=== PATIENT | male | born 1945 | race Caucasian/White ===

== ENCOUNTER 2018-03-12 09:48 | Emergency (ER) | payer MEDICARE, OTHER ==
[~2018-03-12] VITALS: Ht 571.8 cm; Wt 79.5 kg
[~2018-03-12 09:48] MED LIST: ALD25T PO; ASPI-1071 PO; ATOR40TA14 PO; CLOP75TA35 PO; LOP25T PO; MULT-1085 PO; NITR0.4T48 SL; PANT40TA39 PO; RANI-366 PO
[2018-03-12] MEDS ORDERED: ondansetron/PF 4mg/2ml inj IV ONE ×2 (09:55→11:35)
[2018-03-12] MEDS ORDERED: normal saline 1000ML IV soln IVB ONE ×2 (09:55→11:35)
[2018-03-12] MEDS: morphine 4 MG/ML inj SYRINge IV PRN ×2 (10:04→11:59)
[2018-03-12 10:39] LABS: BASOPHILS % (AUTO) 0.2 % (0-1); EOSINOPHILS # (AUTO) 0.2 X10'3 (0-0.9); HEMATOCRIT 39.7 % (42.0-52.0); HEMOGLOBIN 13.1 g/dl (14.0-17.9); LYMPHOCYTES # (AUTO) 0.9 X10'3 (1.1-4.8); LYMPHOCYTES % (AUTO) 5.5 % (21-51); MEAN CORPUSCULAR HGB CONC 33.1 % (33.0-36.5); MEAN CORPUSCULAR VOLUME 81.3 FL (78-98); MEAN PLATELET VOLUME 6.8 FL (7.4-10.4); MONOCYTES # (AUTO) 0.3 X10'3 (0-0.9); MONOCYTES % (AUTO) 1.6 % (2-12); NEUTROPHILS # (AUTO) 14.6 X10'3 (1.8-7.7); NEUTROPHILS % (AUTO) 91.7 % (42-75); PLATELET COUNT 366 X10'3 (140-440); RED BLOOD COUNT 4.88 X10'6 (4.70-6.10); RED CELL DISTRIBUTION WIDTH 17.8 % (11.5-14.5); WHITE BLOOD COUNT 15.9 X10'3 (4.5-11.0)
[2018-03-12 10:54] LABS: ALANINE AMINOTRANSFERASE 29 U/L (12-78); ALBUMIN 3.9 G/DL (3.4-5.0); ALKALINE PHOSPHATASE 121 IU/L (46-116); ANION GAP 11 (8-16); ASPARTATE AMINO TRANSFERASE 20 U/L (10-37); BILIRUBIN,TOTAL 0.6 MG/DL (0.1-1.0); BLOOD UREA NITROGEN 16 MG/DL (7-18); BUN/CREATININE RATIO 14.5 (5.4-32.0); CALCIUM 9.2 MG/DL (8.5-10.1); CHLORIDE 105 MMOL/L (99-107); GLUCOSE 186 MG/DL (70-104); LIPASE 73 U/L (73-393); POTASSIUM 4.9 MMOL/L (3.5-5.1); SODIUM 141 MMOL/L (135-145); TOTAL CARBON DIOXIDE 25.1 MMOL/L (24-32); TOTAL PROTEIN 7.9 G/DL (6.4-8.2); eGFR 66 ML/MIN
[2018-03-12] MEDS ORDERED: sucralfate 1gm/10ml UD suspension PO STA (11:32)
[2018-03-12 11:34] LABS: CLARITY,URINE CLEAR (Clear); COLOR,URINE YELLOW (Yellow); GLUCOSE, URINE 250 mg/dl (Neg); KETONES,URINE >=80 mg/dl (Neg); LEUKOCYTE ESTERASE ,URINE NEGATIVE (Neg); NITRITES, URINE NEGATIVE (Neg); OCCULT BLOOD,URINE NEGATIVE (Neg); PROTEIN,URINE NEGATIVE (Neg); UROBILINOGEN,URINE 0.2 E.U/dL (0.2-1.0)
[2018-03-12 11:35] LABS: UA COLLECTION TYPE CLN CATCH MIDSTREAM
[2018-03-12] MEDS ORDERED: proCHLORperazine 10 MG/2 ml inj IV ONE (11:35)
[2018-03-12] MEDS ORDERED: mag hydrox/Alum hydrox/simeth 30ml oral suspension PO ONE (11:35)
[2018-03-12] MEDS ORDERED: LIDOcaine Viscous 15ml cup PO ONE (11:35)
[2018-03-12] MEDS ORDERED: morphine 4 MG/ML inj SYRINge IV PRN (11:35)
[2018-03-12] MEDS ORDERED: ONDA8TAB9 PO (12:43)
[2018-03-12] MEDS ORDERED: SUCR1ORA2 PO (12:43)
[2018-03-12 12:57] VITALS: BP 161/87
== END 2018-03-12 12:59 | disposition home or self-care (01) ==
LOC: ER 09:48
DX: R10.11 Right upper quadrant pain (principal); R10.13 Epigastric pain; R11.2 Nausea with vomiting, unspecified; R19.7 Diarrhea, unspecified; I25.10 Atherosclerotic heart disease of native coronary artery without angina pectoris; E78.00 Pure hypercholesterolemia, unspecified; I10 Essential (primary) hypertension; K21.9 Gastro-esophageal reflux disease without esophagitis; J45.909 Unspecified asthma, uncomplicated; E11.9 Type 2 diabetes mellitus without complications; G89.29 Other chronic pain; F12.90 Cannabis use, unspecified, uncomplicated; Z95.1 Presence of aortocoronary bypass graft; Z87.442 Personal history of urinary calculi; Z98.61 Coronary angioplasty status; Z98.890 Other specified postprocedural states; Z88.0 Allergy status to penicillin; Z88.8 Allergy status to other drugs, medicaments and biological substances; Z79.82 Long term (current) use of aspirin; Z79.899 Other long term (current) drug therapy
CPT/HCPCS: 36415; 74176; 80053; 81003; 83690; 85025; 93005; 96361; 96374; 96375; 96376; 99285; J0780; J2270; J2405; J7030

== ENCOUNTER 2020-07-13 10:10 | Emergency (ER) | payer OTHER, MEDICARE ==
[~2020-07-13] VITALS: Ht 165.1 cm; Wt 81.8 kg
[~2020-07-13 10:10] MED LIST changes: +ONDA8TAB9 PO; +SUCR1ORA2 PO
[2020-07-13] MEDS ORDERED: cyclobenzaprine 10mg tablet PO ONE ×3 (11:25→11:45)
[2020-07-13] MEDS ORDERED: ketorolac trometh. 30mg/ml inj. IM ONE (11:25)
[2020-07-13] MEDS ORDERED: triamcinolone acetonide 40mg/ml inj IM ONE (11:25)
--- NOTE | 2020-07-13 13:30 | NUR ---
Pt is awaiting MRI to be completed.
[2020-07-13 15:03] VITALS: BP 172/68
[2020-07-13] MEDS ORDERED: CYCL-1 PO (15:13)
[2020-07-13] MEDS ORDERED: HYDR-4353 PO (15:13)
== END 2020-07-13 15:20 | disposition home or self-care (01) ==
LOC: ER 10:12
DX: M54.42 Lumbago with sciatica, left side (principal); G89.29 Other chronic pain; I25.10 Atherosclerotic heart disease of native coronary artery without angina pectoris; E78.00 Pure hypercholesterolemia, unspecified; I10 Essential (primary) hypertension; J45.909 Unspecified asthma, uncomplicated; K21.9 Gastro-esophageal reflux disease without esophagitis; E11.9 Type 2 diabetes mellitus without complications; F12.90 Cannabis use, unspecified, uncomplicated; Z98.61 Coronary angioplasty status; Z95.1 Presence of aortocoronary bypass graft; Z98.890 Other specified postprocedural states; Z88.0 Allergy status to penicillin; Z79.82 Long term (current) use of aspirin; Z79.899 Other long term (current) drug therapy
CPT/HCPCS: 72148; 96372; 99284; J1885; J3301

== ENCOUNTER 2020-11-16 11:22 | Day surgery (SDC) | payer MEDICARE ==
[2020-11-16] VITALS (11 sets, daily range): BP systolic 125–156; BP diastolic 51–78
[~2020-11-16] VITALS: Ht 165.1 cm; Wt 88.7 kg
[~2020-11-16 11:22] MED LIST changes: +CLOP75TA34 PO; -CLOP75TA35 PO; +CYCL-1 PO
[2020-11-16] MEDS ORDERED: glucagon, human recombinant 1mg kit SUBCUT PRN (12:15)
[2020-11-16] MEDS ORDERED: diphenhydrAMINE 25mg capsule PO PRN (12:15)
[2020-11-16] MEDS ORDERED: insulin Lispro (HumaLOG) vial - multi-dose SQ SCH (12:15)
[2020-11-16] MEDS ORDERED: normal saline 1,000 ML IV SCH (12:15)
[2020-11-16] MEDS ORDERED: dextrose 50%-water 50ml dispensing syringe IV PRN ×2 (12:15)
[2020-11-16] MEDS ORDERED: LORazepam 0.5 MG tablet PO PRN (12:15)
[2020-11-16] MEDS ORDERED: nitroGLYCERIN 0.4mg SUBLingual tab SL PRN (12:15)
[2020-11-16] MEDS ORDERED: dextrose ORAL solution 15 GM/59 ML bottle PO PRN ×2 (12:15)
[2020-11-16] MEDS ORDERED: ATOR80TA PO (12:26)
[2020-11-16] MEDS ORDERED: UBID200C18 PO (12:26)
[2020-11-16] MEDS ORDERED: METF-900 PO (12:26)
[2020-11-16] MEDS ORDERED: ESOM20CA PO (12:26)
[2020-11-16] MEDS ORDERED: EZET10TA6 PO (12:26)
[2020-11-16] MEDS ORDERED: VITAMIN B12 PO (12:26)
[2020-11-16] MEDS ORDERED: VITAMIN E PO (12:26)
[2020-11-16] MEDS ORDERED: CHOL100046 PO (12:26)
[2020-11-16] MEDS ORDERED: AMLO2.5T4 PO (12:26)
[2020-11-16 12:32] LABS: BASOPHILS # (AUTO) 0.1 X10'3 (0-0.2); BASOPHILS % (AUTO) 1.3 % (0-1); EOSINOPHILS # (AUTO) 0.6 X10'3 (0-0.9); HEMATOCRIT 33.4 % (42.0-52.0); HEMOGLOBIN 10.5 g/dl (14.0-17.9); LYMPHOCYTES # (AUTO) 2.4 X10'3 (1.1-4.8); LYMPHOCYTES % (AUTO) 32.9 % (21-51); MEAN CORPUSCULAR HEMOGLOBIN 24.3 PG (27.0-31.0); MEAN CORPUSCULAR HGB CONC 31.5 g/dL (33.0-36.5); MEAN CORPUSCULAR VOLUME 77.2 FL (78-98); MEAN PLATELET VOLUME 6.6 FL (7.4-10.4); MONOCYTES # (AUTO) 0.8 X10'3 (0-0.9); MONOCYTES % (AUTO) 10.5 % (2-12); NEUTROPHILS # (AUTO) 3.5 X10'3 (1.8-7.7); NEUTROPHILS % (AUTO) 47.3 % (42-75); PLATELET COUNT 381 X10'3 (140-440); RED BLOOD COUNT 4.32 X10'6 (4.70-6.10); RED CELL DISTRIBUTION WIDTH 16.6 % (11.5-14.5); WHITE BLOOD COUNT 7.3 X10'3 (4.5-11.0)
[2020-11-16 12:45] LABS: PARTIAL THROMBOPLASTIN TIME 25 SECONDS (22-32)
[2020-11-16 12:55] LABS: ALBUMIN 3.7 G/DL (3.4-5.0); ANION GAP 9 (8-16); BLOOD UREA NITROGEN 15 MG/DL (7-18); BUN/CREATININE RATIO 15.5 (5.4-32.0); CALCIUM 8.6 MG/DL (8.5-10.1); CHLORIDE 107 MMOL/L (99-107); CREATININE 0.97 MG/DL (0.60-1.10); GLUCOSE 116 MG/DL (70-104); POTASSIUM 4.1 MMOL/L (3.5-5.1); SODIUM 142 MMOL/L (135-145); TOTAL CARBON DIOXIDE 26.2 MMOL/L (24-32); TROPONIN I < 0.04 NG/ML (0.0-0.05); eGFR 76 ML/MIN
[2020-11-16] MEDS ORDERED: predniSONE 20 mg tablet PO STA (13:05)
[2020-11-16] MEDS ORDERED: methylPREDNISolone sod succ 125mg/2ml vial IV STA (13:05)
[2020-11-16] MEDS ORDERED: fentaNYL/PF 50MCG/1 ML 2ML syringe ONE (13:37)
[2020-11-16] MEDS ORDERED: iohexol 350MG/ML 100ml bottle IV ONE (13:37)
[2020-11-16] MEDS ORDERED: LIDOcaine 1% (10mg/ml)w/preservative injection 20ml MDV ONE (13:37)
[2020-11-16] MEDS ORDERED: midazolam 2 mg/2 ml injection ONE (13:37)
[2020-11-16] MEDS ORDERED: iohexol 350 MG/ML 50ML vial IV ONE ×2 (13:37→14:24)
[2020-11-16] MEDS ORDERED: HYDROcodone/acetaminophen 5mg/325mg tablet PO PRN (15:20)
[2020-11-16] MEDS ORDERED: OXAZEpam 15mg capsule PO PRN (15:20)
[2020-11-16] MEDS ORDERED: proCHLORperazine 10 MG/2 ml inj IV PRN (15:20)
[2020-11-16] MEDS ORDERED: ondansetron/PF 4mg/2ml inj IV PRN (15:20)
[2020-11-16] MEDS ORDERED: HYDROcodone/acetaminophen 10/325mg tab PO PRN (15:20)
[2020-11-16] MEDS ORDERED: insulin glargine (Lantus) pen - multi-dose SQ SCH (21:00)
== END 2020-11-16 20:55 | disposition home or self-care (01) ==
LOC: SSTAY O 11:22
PROVIDERS: ATTEND Internal Medicine Cardiovascular Disease
DX: I25.119 Atherosclerotic heart disease of native coronary artery with unspecified angina pectoris (principal); R94.30 Abnormal result of cardiovascular function study, unspecified; I10 Essential (primary) hypertension; Z95.1 Presence of aortocoronary bypass graft
CPT/HCPCS: 36415; 71046; 76937; 80048; 82948; 83880; 84484; 85025; 85610; 85730; 93458; C1760; C1769; C1894; G0278; J1644; J1815; J2001; J2250; J2930; J3010; J7030; J7512; Q0163; Q9967; 99152; 99153; A4620; A6258

== ENCOUNTER 2020-12-21 07:29 | Day surgery (SDC) | payer MEDICARE ==
[2020-12-20 10:42] LABS: BASOPHILS # (AUTO) 0.1 X10'3 (0-0.2); BASOPHILS % (AUTO) 1.2 % (0-1); EOSINOPHILS # (AUTO) 0.3 X10'3 (0-0.9); EOSINOPHILS % (AUTO) 3.2 % (0-6); HEMATOCRIT 32.5 % (42.0-52.0); HEMOGLOBIN 10.1 g/dl (14.0-17.9); LYMPHOCYTES # (AUTO) 1.8 X10'3 (1.1-4.8); LYMPHOCYTES % (AUTO) 20.8 % (21-51); MEAN CORPUSCULAR HEMOGLOBIN 23.2 PG (27.0-31.0); MEAN CORPUSCULAR HGB CONC 31.1 g/dL (33.0-36.5); MEAN CORPUSCULAR VOLUME 74.8 FL (78-98); MEAN PLATELET VOLUME 6.6 FL (7.4-10.4); MONOCYTES % (AUTO) 11.7 % (2-12); NEUTROPHILS # (AUTO) 5.4 X10'3 (1.8-7.7); NEUTROPHILS % (AUTO) 63.1 % (42-75); PLATELET COUNT 431 X10'3 (140-440); RED BLOOD COUNT 4.34 X10'6 (4.70-6.10); RED CELL DISTRIBUTION WIDTH 17.1 % (11.5-14.5); WHITE BLOOD COUNT 8.6 X10'3 (4.5-11.0)
[2020-12-20 10:50] LABS: PARTIAL THROMBOPLASTIN TIME 25 SECONDS (22-32)
[2020-12-20 11:08] LABS: ALANINE AMINOTRANSFERASE 26 U/L (12-78); ALBUMIN 3.6 G/DL (3.4-5.0); ALBUMIN/GLOBULIN RATIO 0.9 (1.1-1.5); ALKALINE PHOSPHATASE 130 IU/L (46-116); ANION GAP 11 (8-16); ASPARTATE AMINO TRANSFERASE 33 U/L (10-37); BILIRUBIN,TOTAL 0.6 MG/DL (0.1-1.0); BLOOD UREA NITROGEN 13 MG/DL (7-18); BUN/CREATININE RATIO 12.6 (5.4-32.0); CALCIUM 9.2 MG/DL (8.5-10.1); CHLORIDE 103 MMOL/L (99-107); CREATININE 1.03 MG/DL (0.60-1.10); GLUCOSE 139 MG/DL (70-104); POTASSIUM 4.3 MMOL/L (3.5-5.1); SODIUM 139 MMOL/L (135-145); TOTAL CARBON DIOXIDE 25.3 MMOL/L (24-32); TOTAL PROTEIN 7.8 G/DL (6.4-8.2); eGFR 71 ML/MIN
[~2020-12-21] VITALS: Ht 165.1 cm; Wt 87.4 kg
[2020-12-21] VITALS (12 sets, daily range): BP systolic 103–146; BP diastolic 44–76
[~2020-12-21 07:29] MED LIST changes: -ALD25T PO; +AMLO2.5T4 PO; -ATOR40TA14 PO; +ATOR80TA PO; +CHOL100046 PO; -CYCL-1 PO; +ESOM20CA PO; +EZET10TA6 PO; +METF-900 PO; -MULT-1085 PO; -ONDA8TAB9 PO; -PANT40TA39 PO; -RANI-366 PO; -SUCR1ORA2 PO; +UBID200C18 PO; +VITAMIN B12 PO; +VITAMIN E PO
[2020-12-21] MEDS ORDERED: glucagon, human recombinant 1mg kit SUBCUT PRN (08:00)
[2020-12-21] MEDS ORDERED: diphenhydrAMINE 25mg capsule PO PRN (08:00)
[2020-12-21] MEDS ORDERED: insulin Lispro (HumaLOG) vial - multi-dose SQ SCH (08:00)
[2020-12-21] MEDS ORDERED: normal saline 1,000 ML IV SCH (08:00)
[2020-12-21] MEDS ORDERED: dextrose 50%-water 50ml dispensing syringe IV PRN ×2 (08:00)
[2020-12-21] MEDS ORDERED: nitroGLYCERIN 0.4mg SUBLingual tab SL PRN (08:00)
[2020-12-21] MEDS ORDERED: dextrose ORAL solution 15 GM/59 ML bottle PO PRN ×2 (08:00)
[2020-12-21] MEDS ORDERED: LORazepam 0.5 MG tablet PO PRN (08:00)
[2020-12-21] MEDS ORDERED: TRAM50TA2 PO (08:24)
[2020-12-21] MEDS ORDERED: NITR1PAT63 TOP (08:24)
[2020-12-21] MEDS ORDERED: METO25TA6 PO (08:24)
[2020-12-21] MEDS ORDERED: FLO0.4C PO (08:24)
[2020-12-21] MEDS ORDERED: AMLO2.5T5 PO (08:24)
[2020-12-21] MEDS ORDERED: ASPI-10 PO (08:24)
[2020-12-21] MEDS ORDERED: NITR0.4T51 SL (08:24)
[2020-12-21] MEDS ORDERED: GABA-530 PO (08:24)
[2020-12-21] MEDS ORDERED: GARL1000 PO (08:24)
[2020-12-21 09:09] LABS: TROPONIN I 1.88 NG/ML (0.0-0.05)
--- NOTE | 2020-12-21 09:24 | NUR ---
Called blood bank laboratory technician to report elevated troponin to Dr. Winter, he was in the blood bank laboratory technician "scrubbed in" so Suha CAMILO took the message and stated she would report lab result to MD. Pt sitting up in bed, denies cp, denies sob. Will continue to monitor.
[2020-12-21] MEDS ORDERED: iohexol 350 MG/ML 50ML vial IV ONE (09:54)
[2020-12-21] MEDS ORDERED: midazolam 1 mg/ML 2ml injection ONE (09:54)
[2020-12-21] MEDS ORDERED: iohexol 350MG/ML 100ml bottle IV ONE (09:54)
[2020-12-21] MEDS ORDERED: LIDOcaine 1% (10mg/ml)w/preservative injection 20ml MDV ONE (09:54)
[2020-12-21] MEDS ORDERED: fentaNYL/PF 50MCG/1 ML 2ML syringe ONE (09:54)
[2020-12-21] MEDS ORDERED: proCHLORperazine 10 MG/2 ml inj ONE (10:37)
[2020-12-21] MEDS ORDERED: heparin 1,000unit/ml 10ml vial 10 ML ONE (11:09)
[2020-12-21] MEDS ORDERED: tirofiban 5mg in NS 100mL 100 ML IV ONE (11:12)
[2020-12-21] MEDS ORDERED: heparin 25,000 UNIT/250ml bag 250 ML IV ONE (11:12)
[2020-12-21] MEDS ORDERED: HYDROmorphone 1 mg/ml syringe ONE (11:12)
[2020-12-21] MEDS ORDERED: iohexol 350 MG/1 ML 200ml bottle ONE (11:13)
[2020-12-21] MEDS ORDERED: nitroGLYCERIN-Tridil 50MG/D5W 250 ML IV ONE (11:28)
[2020-12-21] MEDS ORDERED: clopidogrel 300mg tablet ONE (11:38)
[2020-12-21] MEDS ORDERED: HYDROcodone/acetaminophen 10/325mg tab PO PRN (12:15)
[2020-12-21] MEDS ORDERED: proCHLORperazine 10 MG/2 ml inj IV PRN (12:15)
[2020-12-21] MEDS ORDERED: ondansetron/PF 4mg/2ml inj IV PRN (12:15)
[2020-12-21] MEDS ORDERED: HYDROcodone/acetaminophen 5mg/325mg tablet PO PRN (12:15)
[2020-12-21] MEDS ORDERED: OXAZEpam 15mg capsule PO PRN (12:15)
--- NOTE | 2020-12-21 12:30 | NUR ---
Pt ate 100% of breakfast tray, 250ml oral fluid intake
--- NOTE | 2020-12-21 15:39 | NUR ---
Pt resting comfortably, eyes closed, respirations even. Site stable, vs stable as charted. Will continue to monitor.
--- NOTE | 2020-12-21 16:18 | NUR ---
Problems reprioritized. Patient report given, questions answered & plan of care reviewed with LESLEE Baires.
[2020-12-21] MEDS ORDERED: insulin glargine (Lantus) pen - multi-dose SQ SCH (21:00)
== END 2020-12-21 19:15 | disposition home or self-care (01) ==
LOC: SSTAY O 07:29
PROVIDERS: ATTEND Internal Medicine Cardiovascular Disease
DX: I25.118 Atherosclerotic heart disease of native coronary artery with other forms of angina pectoris (principal); E11.9 Type 2 diabetes mellitus without complications; N40.1 Benign prostatic hyperplasia with lower urinary tract symptoms; E78.5 Hyperlipidemia, unspecified; I25.2 Old myocardial infarction; I10 Essential (primary) hypertension; J44.9 Chronic obstructive pulmonary disease, unspecified; G89.4 Chronic pain syndrome; Z79.01 Long term (current) use of anticoagulants; Z98.890 Other specified postprocedural states; Z88.0 Allergy status to penicillin; Z88.8 Allergy status to other drugs, medicaments and biological substances; Z87.891 Personal history of nicotine dependence; Z95.5 Presence of coronary angioplasty implant and graft; R06.02 Shortness of breath
CPT/HCPCS: 36415; 71046; 76937; 80053; 82948; 83880; 84484; 85025; 85347; 85610; 85730; 99152; 99153; C1725; C1751; C1760; C1769; C1874; C1894; C9600; J0780; J1170; J1644; J1815; J2001; J2250; J3010; J3246; J7030; Q0163; Q9967; 75710; 93452; A6258; J3490

== ENCOUNTER 2022-12-14 09:25 | Inpatient (IN) | payer OTHER, MEDICARE ==
[~2022-12-14] VITALS: Ht 165.1 cm; Wt 81.8 kg
[~2022-12-14 09:25] MED LIST changes: -AMLO2.5T4 PO; +AMLO2.5T5 PO; +ASPI-10 PO; -ASPI-1071 PO; +FLO0.4C PO; +GABA-530 PO; +GARL1000 PO; -NITR0.4T48 SL; +NITR0.4T51 SL; +NITR1PAT63 TOP; +TRAM50TA2 PO
[2022-12-14] MEDS ORDERED: nitroGLYCERIN 0.4mg SUBLingual tab SL PRN ×2 (10:30→15:00)
[2022-12-14 10:50] LABS: BASOPHILS # (AUTO) 0.1 X10'3 (0-0.2); BASOPHILS % (AUTO) 0.9 % (0-1); EOSINOPHILS # (AUTO) 0.2 X10'3 (0-0.9); EOSINOPHILS % (AUTO) 3.6 % (0-6); HEMATOCRIT 44.5 % (42.0-52.0); HEMOGLOBIN 15.2 g/dl (14.0-17.9); LYMPHOCYTES # (AUTO) 1.9 X10'3 (1.1-4.8); LYMPHOCYTES % (AUTO) 28.8 % (21-51); MEAN CORPUSCULAR HEMOGLOBIN 31.2 PG (27.0-31.0); MEAN CORPUSCULAR HGB CONC 34.1 g/dL (33.0-36.5); MEAN CORPUSCULAR VOLUME 91.4 FL (78-98); MEAN PLATELET VOLUME 6.3 FL (7.4-10.4); MONOCYTES # (AUTO) 0.6 X10'3 (0-0.9); MONOCYTES % (AUTO) 8.5 % (2-12); NEUTROPHILS # (AUTO) 3.9 X10'3 (1.8-7.7); NEUTROPHILS % (AUTO) 58.2 % (42-75); PLATELET COUNT 289 X10'3 (140-440); RED BLOOD COUNT 4.87 X10'6 (4.70-6.10); RED CELL DISTRIBUTION WIDTH 14.8 % (11.5-14.5); WHITE BLOOD COUNT 6.7 X10'3 (4.5-11.0)
[2022-12-14 11:10] LABS: ALANINE AMINOTRANSFERASE 52 U/L (12-78); ALBUMIN 3.9 G/DL (3.4-5.0); ALBUMIN/GLOBULIN RATIO 1.1 (1.1-1.5); ALKALINE PHOSPHATASE 98 IU/L (46-116); ANION GAP 11 (8-16); ASPARTATE AMINO TRANSFERASE 31 U/L (10-37); BILIRUBIN,TOTAL 0.5 MG/DL (0.1-1.0); BLOOD UREA NITROGEN 17 MG/DL (7-18); BUN/CREATININE RATIO 18.1 (5.4-32.0); CALCIUM 9.5 MG/DL (8.5-10.1); CHLORIDE 104 MMOL/L (99-107); CREATININE 0.94 MG/DL (0.60-1.10); GLUCOSE 181 MG/DL (70-104); POTASSIUM 4.3 MMOL/L (3.5-5.1); SODIUM 141 MMOL/L (135-145); TOTAL CARBON DIOXIDE 26.3 MMOL/L (24-32); TOTAL PROTEIN 7.4 G/DL (6.4-8.2); eGFR 78 ML/MIN
[2022-12-14] MEDS ORDERED: nitroGLYCERIN 0.4mg/hour patch TD ONE (14:35)
[2022-12-14] MEDS ORDERED: aspirin 81mg tab.chew PO ONE (14:35)
[2022-12-14] MEDS ORDERED: HYDROcodone/acetaminophen 10/325mg tab PO PRN (15:00)
[2022-12-14] MEDS ORDERED: magnesium 4gm in 100ml NS 100 ML IV PRN (15:00)
[2022-12-14] MEDS ORDERED: ondansetron/PF 4mg/2ml inj IV PRN (15:00)
[2022-12-14] MEDS ORDERED: morphine 2 MG/ML inj. syringe IV PRN ×2 (15:00)
[2022-12-14] MEDS ORDERED: acetaminophen 325mg tablet PO PRN ×2 (15:00)
[2022-12-14] MEDS ORDERED: HYDROcodone/acetaminophen 5mg/325mg tablet PO PRN (15:00)
[2022-12-14] MEDS ORDERED: magnesium Cl slow-release 64mg tablet PO PRN (15:00)
[2022-12-14] MEDS ORDERED: magnesium hydroxide 30ml (MOM) UD suspension PO PRN (15:00)
[2022-12-14] MEDS ORDERED: mag hydrox/Alum hydrox/simeth 30ml oral suspension PO PRN (15:00)
[2022-12-14] MEDS ORDERED: normal saline 1000ml 1,000 ML IV SCH (15:00)
[2022-12-14] MEDS ORDERED: potassium Cl 40MEQ/1/2NS 520ml 520 ML IV PRN (15:00)
[2022-12-14] MEDS ORDERED: potassium Cl 20 mEq SR tablet PO PRN ×2 (15:00)
[2022-12-14] MEDS ORDERED: PERFLUTREN PROTEIN-A MICROSPHR (Optison) 0.22 MG/ML 3ML VIAL IV ONE (15:00)
--- NOTE | 2022-12-14 15:39 | NUR ---
Lindsey Estrella NP and Ovuline at bedside.
[2022-12-14 15:41] LABS: CHOL/HDL RATIO 5.5 (0.00-4.99); CHOLESTEROL 205 MG/DL (0-200); HDL CHOLESTEROL 37 MG/DL (35-60); LDL CHOLESTEROL 132 MG/DL (50-100); TRIGLYCERIDES 308 MG/DL (20-135)
--- NOTE | 2022-12-14 15:48 | NUR ---
Dr. Trevizo, Hospitalist at bedside.
[2022-12-14] MEDS ORDERED: GABA300C PO (16:24)
[2022-12-14 16:27] LABS: APTT 26 SECONDS (22-32)
[2022-12-14] MEDS ORDERED: traMADol 50MG tablet PO PRN (16:45)
--- NOTE | 2022-12-14 18:07 | NUR ---
RN paged Dr. Burns @ [phone]: "ER-15, [facility] - Pt is not able to have MRI due to coronary stent placed by Dr. Winter. Please call with questions. - LESLEE Torres [phone]" Confirmed with coronary stent card in pt's possession.
[2022-12-14 18:15] VITALS: BP 149/76
[2022-12-14] MEDS ORDERED: metoprolol tartrate 25mg tablet PO SCH (20:00)
[2022-12-14] MEDS ORDERED: amLODIPine 2.5mg tablet PO SCH (20:00)
[2022-12-14] MEDS ORDERED: heparin, porcine 5000 units/ml vial SQ SCH (20:00)
[2022-12-14] MEDS ORDERED: docusate sod 100mg capsule PO SCH (20:00)
[2022-12-14] MEDS ORDERED: K and/or MAG REPLACEMENT MC SCH (20:00)
[2022-12-14] MEDS ORDERED: temazepam 15mg capsule PO PRN (21:00)
[2022-12-14] MEDS ORDERED: atorvastatin 20mg tablet PO SCH (21:00)
[2022-12-15] MEDS ORDERED: gabapentin 300mg capsule PO SCH
[2022-12-15] MEDS ORDERED: pantoprazole 40mg Tablet.DR PO SCH (08:00)
[2022-12-15] MEDS ORDERED: ezetimibe 10mg tablet PO SCH (08:00)
[2022-12-15] MEDS ORDERED: tamsulosin 0.4mg capsule PO SCH (08:00)
[2022-12-15] MEDS ORDERED: nitroGLYCERIN 0.4mg/hour patch TD SCH (08:00)
[2022-12-15] MEDS ORDERED: clopidogrel 75mg tablet PO SCH (08:00)
[2022-12-15] MEDS ORDERED: aspirin 325mg tablet PO SCH (08:00)
[2022-12-15] MEDS ORDERED: aspirin 81mg tab.chew PO SCH (08:30)
== END 2022-12-14 19:58 | disposition left against medical advice (07) | DRG 303 ==
LOC: ER 09:25 → ED HOLD 15:08 → EDBEDREQ 16:38
PROVIDERS: ADMIT Family Medicine; ATTEND Family Medicine
DX: I25.110 Atherosclerotic heart disease of native coronary artery with unstable angina pectoris (principal); E11.51 Type 2 diabetes mellitus with diabetic peripheral angiopathy without gangrene; E78.00 Pure hypercholesterolemia, unspecified; G89.4 Chronic pain syndrome; I10 Essential (primary) hypertension; J45.909 Unspecified asthma, uncomplicated; Z53.29 Procedure and treatment not carried out because of patient's decision for other reasons; F12.90 Cannabis use, unspecified, uncomplicated; M54.9 Dorsalgia, unspecified; N40.1 Benign prostatic hyperplasia with lower urinary tract symptoms; K21.9 Gastro-esophageal reflux disease without esophagitis; R19.7 Diarrhea, unspecified; M47.9 Spondylosis, unspecified; M48.07 Spinal stenosis, lumbosacral region; Z85.828 Personal history of other malignant neoplasm of skin; Z87.442 Personal history of urinary calculi; Z87.891 Personal history of nicotine dependence; Z88.0 Allergy status to penicillin; Z91.199 Patient's noncompliance with other medical treatment and regimen due to unspecified reason; Z95.1 Presence of aortocoronary bypass graft; Z95.5 Presence of coronary angioplasty implant and graft; Z79.84 Long term (current) use of oral hypoglycemic drugs; Z88.8 Allergy status to other drugs, medicaments and biological substances; Z79.899 Other long term (current) drug therapy; Z79.82 Long term (current) use of aspirin
CPT/HCPCS: 36415; 71045; 71250; 80053; 80061; 83880; 84484; 85025; 85610; 85730; 93005; 93306; 99285; G0378; J7030

== ENCOUNTER 2024-07-24 08:04 | Outpatient (CLI) | payer OTHER, MEDICARE ==
[~2024-07-24 08:04] MED LIST changes: -GABA-530 PO; +GABA300C PO; -GARL1000 PO; +GARL10002 PO
[2024-07-24] MEDS ORDERED: iohexol 350MG/ML 100ml bottle IV ONE (08:35)
[2024-07-24] MEDS ORDERED: iohexol 350 MG/ML 50ML vial IV ONE (08:35)
== END 2024-07-24 23:59 | disposition home or self-care (01) ==
LOC: RAD 08:04
PROVIDERS: ATTEND Surgery
DX: Z48.89 Encounter for other specified surgical aftercare (principal); N20.0 Calculus of kidney; N40.0 Benign prostatic hyperplasia without lower urinary tract symptoms
CPT/HCPCS: 75635; Q9967

== ENCOUNTER 2025-02-03 05:45 | Day surgery (SDC) | payer OTHER, MEDICARE ==
[2025-02-02 09:55] LABS: BASOPHILS # (AUTO) 0.1 X10'3 (0-0.2); BASOPHILS % (AUTO) 0.9 % (0-1); EOSINOPHILS # (AUTO) 0.3 X10'3 (0-0.9); EOSINOPHILS % (AUTO) 4.6 % (0-6); HEMATOCRIT 45.5 % (42.0-52.0); HEMOGLOBIN 15.1 g/dl (14.0-17.9); LYMPHOCYTES # (AUTO) 2.1 X10'3 (1.1-4.8); LYMPHOCYTES % (AUTO) 28.1 % (21-51); MEAN CORPUSCULAR HEMOGLOBIN 30.1 PG (27.0-31.0); MEAN CORPUSCULAR HGB CONC 33.2 g/dL (33.0-36.5); MEAN CORPUSCULAR VOLUME 90.8 FL (78-98); MEAN PLATELET VOLUME 7.1 FL (7.4-10.4); MONOCYTES # (AUTO) 0.5 X10'3 (0-0.9); MONOCYTES % (AUTO) 7.3 % (2-12); NEUTROPHILS # (AUTO) 4.3 X10'3 (1.8-7.7); NEUTROPHILS % (AUTO) 59.1 % (42-75); PLATELET COUNT 233 X10'3 (140-440); RED BLOOD COUNT 5.01 X10'6 (4.70-6.10); WHITE BLOOD COUNT 7.3 X10'3 (4.5-11.0)
[2025-02-02 10:08] LABS: APTT 27 SECONDS (22-32); INR 1.1 INR; PROTHROMBIN TIME 11.4 SECONDS (9.0-12.0)
[2025-02-02 10:33] LABS: ANION GAP 8 (8-16); BLOOD UREA NITROGEN 19 MG/DL (7-18); CALCIUM 9.4 MG/DL (8.5-10.1); CHLORIDE 104 MMOL/L (99-107); GLUCOSE 126 MG/DL (70-104); POTASSIUM 4.9 MMOL/L (3.5-5.1); SODIUM 142 MMOL/L (135-145); TOTAL CARBON DIOXIDE 29.7 MMOL/L (24-32); eGFR 72 ML/MIN
[~2025-02-03] VITALS: Ht 165.1 cm; Wt 76.2 kg
[2025-02-03] VITALS (13 sets, daily range): BP systolic 105–160; BP diastolic 52–70; PULSE 52–61; RESP 12–18; TEMP 98.1; O2SAT 93–96
[~2025-02-03 05:45] MED LIST changes: +ATOR-429 PO; -ATOR80TA PO; -FLO0.4C PO; +TAMS-55 PO
[2025-02-03] MEDS ORDERED: diphenhydrAMINE 25mg capsule PO PRN (06:20)
--- NOTE | 2025-02-03 06:25 | ELECTROCARDIOGRAPH REPORT ---
[facility] Test Date: 2025-02-03 Test Time: 06:22:12 Pat Name: MAHI BREWER Department: [facility] Patient ID: [facility]-[id number] Room: Gender: M Raise Drill Operator: MIGDALIA : 1945 Requested By: MICHAEL ALBERTO Order Number: [id number] Reading MD: Dr. Naya Wolf Measurements Intervals [place] Rate: 60 P: 67 AR: 157 QRS: 82 QRSD: 95 T: 128 QT: 432 QTc: 432 Interpretive Statements Sinus rhythm Borderline right axis deviation Abnormal T, consider ischemia, lateral leads Electronically Signed On 02-03-2025 6:42:[address] Naya Wolf Please click the below link to view image of tracing.
[2025-02-03] MEDS ORDERED: AMLO2.5T5 PO (06:43)
[2025-02-03] MEDS ORDERED: ROSU40TA89 PO (06:46)
[2025-02-03] MEDS ORDERED: EMPA25TA PO (06:47)
[2025-02-03] MEDS ORDERED: Lisinopril PO (06:49)
[2025-02-03] MEDS ORDERED: OMEG-166 PO (06:54)
[2025-02-03] MEDS: LORazepam 0.5 MG tablet PO PRN (07:15)
[2025-02-03] MEDS: normal saline 1,000 ML IV SCH (07:15)
[2025-02-03] MEDS: famotidine/PF 10 mg/ml inj IV ONE (07:15)
[2025-02-03] MEDS: diphenhydrAMINE 50 mg/ml inj IV ONE (07:15)
[2025-02-03] MEDS ORDERED: fentaNYL/PF 50MCG/1 ML 2ML syringe ONE (07:25)
[2025-02-03] MEDS ORDERED: heparin 1,000unit/ml 10ml vial 10 ML ONE (07:25)
[2025-02-03] MEDS ORDERED: iohexol 350 MG/ML 50ML vial IV ONE (07:25)
[2025-02-03] MEDS ORDERED: verapamil 2.5 mg/ml inj IV ONE (07:25)
[2025-02-03] MEDS ORDERED: midazolam 1 mg/ML 2ml injection ONE (07:25)
[2025-02-03] MEDS ORDERED: LIDOcaine 1% (10mg/ml) 2ml vial ONE (07:25)
[2025-02-03] MEDS ORDERED: iohexol 350MG/ML 100ml bottle IV ONE ×3 (07:26→09:50)
[2025-02-03] MEDS ORDERED: nitroGLYCERIN 500mcg/5mL D5W 5 ML IV ONE ×2 (07:28→09:41)
[2025-02-03] MEDS: hydrocortisone sod succ/PF 100mg/2ml inj. IV ONE (07:45)
[2025-02-03] MEDS ORDERED: heparin 1,000 UNITS/NS 500ml 500 ML ONE (08:04)
[2025-02-03] MEDS ORDERED: LIDOcaine 1% 30ml preserv. free vial ONE (08:39)
[2025-02-03] MEDS ORDERED: heparin 25,000 UNIT/250ml bag 250 ML IV ONE (09:18)
[2025-02-03] MEDS ORDERED: nitroGLYCERIN 0.4mg SUBLingual tab SL ONE (09:28)
[2025-02-03] MEDS ORDERED: clopidogrel 300mg tablet ONE (09:59)
[2025-02-03] MEDS ORDERED: aspirin 325mg tablet ONE (10:05)
--- NOTE | 2025-02-03 11:08 | ELECTROCARDIOGRAPH REPORT ---
[facility] Test Date: 2025-02-03 Test Time: 11:06:02 Pat Name: MAHI BREWER Department: [facility] Patient ID: [facility]-[id number] Room: Gender: M Zipper Joiner: MIGDALIA : 1945 Requested By: MICHAEL ALBERTO Order Number: [id number] Reading MD: Dr. Donis Grey Measurements Intervals [place] Rate: 63 P: 70 RI: 171 QRS: 76 QRSD: 90 T: 90 QT: 465 QTc: 477 Interpretive Statements Sinus rhythm Borderline prolonged QT interval Electronically Signed On 02-04-2025 9:45:[address] Donis Grey Please click the below link to view image of tracing.
[2025-02-03] MEDS ORDERED: HYDROcodone/acetaminophen 10/325mg tab PO PRN (11:30)
[2025-02-03] MEDS ORDERED: HYDROcodone/acetaminophen 5mg/325mg tablet PO PRN (11:30)
[2025-02-03] MEDS: SODIUM BICARBONATE 150MEQ IN D5W 1,150 ML IV ONE (12:50)
[2025-02-03] MEDS ORDERED: CLOP75TA33 PO (14:28)
[2025-02-03] MEDS ORDERED: ASPI-611 PO (14:28)
--- NOTE | 2025-02-04 07:01 | CARDIOLOGY REPORT ---
DATE OF SERVICE: 02/03/2025 DICTATING PHYSICIAN: VANESSA Valentin MD CARDIAC CATHETERIZATION AND CORONARY INTERVENTION REPORT GENDER: Male. AGE: 79 years. HEIGHT: 165 cm. WEIGHT: 76 kg. BODY SURFACE AREA: 1.83 m2. PRIMARY PHYSICIAN: [facility], Dr. Fuentes. INTERIOR HORTICULTURIST: VANESSA Valentin MD INDICATION: The patient is a 79-year-old male with history of hypertension, hyperlipidemia, CAD, CABG and subsequent stenting. His history of CABG goes back to 1995 with CABG x [address] VILLASEÑOR. At that time, he got PÉREZ to LAD, SVG to OM and SVG to diagonal. As of 2010, both vein grafts were occluded. The patient had PTCA stenting of the proximal RCA by Dr. Moy thomas at [facility]. At that time, he had got a proximal RCA, which was stented with 3/23 mm Promus stent. The two vein grafts were occluded. PÉREZ to LAD was patent. The patient on 12/24/2020 had a distal RCA 90% successfully angioplastied and stented with 2.5/18 Resolute Lonnie stent by Dr. Winter at [facility]. The patient is being followed by me in the last one year and he was found to have inferior reversible defect. After discussing risks, benefits and alternative options, the patient underwent coronary angiography. Risks, benefits, and alternative options were discussed and informed consent obtained. The patient also has diabetes. The patient also has peripheral vascular disease with the lower extremity requiring aortobifemoral bypass done by Dr. Tomas in [facility]. PROCEDURE TECHNIQUE: The patient underwent left heart catheterization by left radial approach, 6-Greenlandic left radial sheath. Post-procedure access site hemostasis secured with left radial band. The patient tolerated the procedure well with no complications. PROCEDURES: * Ultrasound-guided left radial artery visualization and access. * Left heart catheterization. * LVG. * Coronary cineangiography. * PÉREZ injection. * Graft cineangiography. * Intravascular ultrasound of the right coronary artery. * PTCA stenting of the in-stent stenosis of RCA. * Conscious sedation 105 minutes. * Distal aortography with runoff. * Left subclavian arteriogram. FINDINGS: HEMODYNAMICS: Aortic systolic 151, diastolic 48, mean 84 mmHg. LVDP of 19 mmHg. No significant gradient across the aortic valve. Left subclavian arteriogram showed tortuous left subclavian requiring Marleny Wire to cross the tortuosity. Left main coronary artery is a medium caliber vessel arising at left aortic sinus with mild luminal irregularities. LAD is 100% occluded. Ramus is 2.25 mm caliber with mild luminal irregularities. small OM of 2 mm diameter with 60% narrowing. The patient has proximal stent, it is patent. Distal stent has 80% narrowing. PÉREZ injection shows good-sized PÉREZ. Normal distal anastomosis. LAD itself is 2.5 mm with mild luminal irregularities. Two out of three grafts were occluded, namely SVG to OM and SVG to diagonal are occluded. Earlier LVG with overall left ventricular systolic function normal. LVG of 65% to 70%. Distal aortography shows distal aortic reconstruction with two grafts into the femoral arteries and left limb has about 80% narrowing. Intravascular ultrasound of the distal LAD and distal RCA. After adequate heparinization, intravascular imaging, ultrasound and stenting were carried out. A 6-Greenlandic PÉREZ guide gave RCA gave good support. Lesion crossed with PT2 moderate wire. Intravascular ultrasound of the distal RCA: Intravascular ultrasound was done using IVUS [place] catheter. It showed significant plaque buildup inside the distal stent. There was also [id number] disease proximally. PTCA stenting of the distal mid RCA. Distal RCA lesion was angioplastied with 2.5/12 echo trek non-NC balloon at 10 atmospheric pressure followed by 14 atmospheric pressure. Lesion was stented with 2.5/18 Xience stent at 12 atmospheric pressure followed by 16 atmospheric pressure. Lesion was postdilated with 3/12 mm ehco trek NC balloon at 14 atmospheric pressure. Mid lesion showed some narrowing as well. Proximal edge was suspicious for a stent and hence, it was decided to cover from proximal to the distal stent with additional 3/23 Xience stent overlapping both the stents. The stent was postdilated with 3 mm NC balloon as well. IMPRESSION: A 79-year-old male with an LV ejection of 65% to 70%. LVEDP of 19 mmHg with no significant gradient across the aortic valve. Left main normal. LAD 100% occluded. OM 60% narrowing. RCA in-stent stenosis distal 80% successfully intravascular ultrasound done, stented with Xience stent and mid portion was covered with 3/23 Xience stent overlapping the proximal and distal stents. A 2.5/18 Xience stent was earlier one. Post-procedure 0% BRANDI 3 flow. The patient tolerated the procedure with no complications. One out of three grafts patent, PÉREZ to LAD patent. Two out of three grafts were occluded, namely SVG to OM and SVG to diagonal occluded. The patient had a reconstructive distal aorta with aortobifemoral anastomosis and the left limb has 80% narrowing. The patient was recommended to follow up with his vascular surgeon for further management of his lesion. Risks, benefits, and alternative options discussed with the patient and his . RECOMMENDATIONS: * Recommend diet, weight loss and exercise program. * Keep his blood pressure as tolerated or less than 130 mmHg. Hemoglobin is less than 7% and LDL less than 55 mg%. BV MD Barbie TID: [id number] RECEIPT: [id number] GLYNN/KATTY/KAREN cc: Ashlee Fuentes MD MTDD
[2025-02-04] MEDS ORDERED: aspirin 81mg, enteric-coated 1 TAB TABLET.DR PO SCH (08:00)
== END 2025-02-03 17:50 | disposition home or self-care (01) ==
LOC: SSTAY O 05:45
PROVIDERS: ATTEND Internal Medicine Cardiovascular Disease
DX: R94.39 Abnormal result of other cardiovascular function study (principal); I25.10 Atherosclerotic heart disease of native coronary artery without angina pectoris; T82.855A Stenosis of coronary artery stent, initial encounter; I25.810 Atherosclerosis of coronary artery bypass graft(s) without angina pectoris; I25.82 Chronic total occlusion of coronary artery; I10 Essential (primary) hypertension; E11.51 Type 2 diabetes mellitus with diabetic peripheral angiopathy without gangrene; E78.5 Hyperlipidemia, unspecified; I25.2 Old myocardial infarction; K21.9 Gastro-esophageal reflux disease without esophagitis; Z95.1 Presence of aortocoronary bypass graft; Z95.5 Presence of coronary angioplasty implant and graft; Y83.8 Other surgical procedures as the cause of abnormal reaction of the patient, or of later complication, without mention of misadventure at the time of the procedure; Z79.899 Other long term (current) drug therapy; Z98.890 Other specified postprocedural states; Z91.041 Radiographic dye allergy status; Z88.0 Allergy status to penicillin; Z88.8 Allergy status to other drugs, medicaments and biological substances
CPT/HCPCS: 36415; 75625; 80048; 85025; 85347; 85610; 85730; 92978; 92979; 93005; 93459; 99152; 99153; C1874; C9600; J1200; J1644; J1720; J2003; J2250; J3010; J3490; J7030; Q9967; 76937; 93458; A6258; A6402; C1725; C1751; C1753; C1769; C1894